=== PATIENT | female | born 1990 | race Caucasian/White ===

== ENCOUNTER 2019-12-06 08:07 | Day surgery (SDC) | payer BC ==
[~2019-12-06] VITALS: Ht 165.1 cm; Wt 69.2 kg
[2019-12-06] MEDS ORDERED: NAPR220C2 PO (09:09)
[2019-12-06] MEDS ORDERED: MULT-658 PO (09:09)
[2019-12-06 09:15] VITALS: BP 111/78
[2019-12-06 09:19] LABS: HCG UR SG 1.022 (1.003-1.030)
[2019-12-06] MEDS ORDERED: LACTATED RINGERS 1,000 ML IV SCH (09:20)
[2019-12-06] MEDS ORDERED: CHLORHEXIDINE 15 ML UDC MM ONE (09:30)
[2019-12-06] MEDS ORDERED: EPINEPHRINE TOPICAL SOLN 1 MG/ML, 30ML ONE (09:58)
[2019-12-06] MEDS ORDERED: ROPIvacaine/PF 0.5%, 30 ML ONE (09:58)
[2019-12-06] MEDS ORDERED: SCOPOLAMINE 1MG PATCH TD SCH (11:00)
[2019-12-06] MEDS ORDERED: ACETAMINOPHEN 500 MG TABLET PO ONE (11:00)
[2019-12-06] MEDS ORDERED: MIDAZOLAM 1 MG/ML, 2ML ONE (11:14)
[2019-12-06] MEDS ORDERED: PROPOFOL 10 MG/ML, 20ML ONE (11:14)
[2019-12-06] MEDS ORDERED: ONDANSETRON 2MG/ML, 2ML ONE ×3 (11:14→17:03)
[2019-12-06] MEDS ORDERED: DEXAMETHASONE 4 MG/ML, 1ML ONE (11:14)
[2019-12-06] MEDS ORDERED: SUCCINYLCHOLINE 20 MG/ML, 10ML ONE (11:14)
[2019-12-06] MEDS ORDERED: ROCURONIUM 10 MG/ML,10ML ONE (11:14)
[2019-12-06] MEDS ORDERED: CEFAZOLIN 1,000 MG ONE (11:14)
[2019-12-06] MEDS ORDERED: ALBUTEROL SULFATE 2.5 MG/3 ML NPPB PRN (12:00)
[2019-12-06] MEDS ORDERED: MEPERIDINE/PF 25MG/0.5ML IVPush PRN (12:00)
[2019-12-06] MEDS ORDERED: METOCLOPRAMIDE 5 MG/ML, 2ML IV PRN (12:00)
[2019-12-06] MEDS ORDERED: ONDANSETRON 2MG/ML, 2ML IVPush PRN (12:00)
[2019-12-06] MEDS ORDERED: hydrALAzine 20 MG/ML, 1ML IV PRN (12:00)
[2019-12-06] MEDS ORDERED: DIAZEPAM 5 MG/ML, 2ML IV PRN ×2 (12:00)
[2019-12-06] MEDS ORDERED: OXYcodone 5 MG/5 ML ORAL.SOL UDC PO PRN (12:00)
[2019-12-06] MEDS ORDERED: PROMETHAZINE 25 MG/ML, 1ML IV PRN (12:00)
[2019-12-06] MEDS ORDERED: KETOROLAC 30 MG/1 ML IV PRN (12:00)
[2019-12-06] MEDS ORDERED: LABETALOL 5MG/ML, 20ML IV PRN (12:00)
[2019-12-06] MEDS ORDERED: HYDROmorphone 1 MG/ML, 1ML INJ ONE (13:07)
[2019-12-06] MEDS ORDERED: FENTANYL PF 100 MCG/2ML ONE (13:07)
[2019-12-06] MEDS ORDERED: PROMETHAZINE 25 MG/ML, 1ML ONE (13:07)
[2019-12-06] MEDS: FENTANYL PF 100 MCG/2ML IV PRN ×2 (13:09→13:17)
[2019-12-06] MEDS: HYDROmorphone 1 MG/ML, 1ML INJ IV PRN ×2 (13:22→13:27)
[2019-12-06] MEDS: PROMETHAZINE 25 MG/ML, 1ML IM PRN ×2 (14:30→17:00)
== END 2019-12-06 18:10 | disposition home or self-care (01) ==
LOC: OUT 08:07 → EDSTATUS 12:15 → OUT 18:10
PROVIDERS: ATTEND Orthopaedic Surgery
DX: S73.191A Other sprain of right hip, initial encounter (principal); Z20.828 Contact with and (suspected) exposure to other viral communicable diseases; M24.151 Other articular cartilage disorders, right hip; M70.61 Trochanteric bursitis, right hip; M25.851 Other specified joint disorders, right hip; Z82.61 Family history of arthritis; Z82.49 Family history of ischemic heart disease and other diseases of the circulatory system; X58.XXXA Exposure to other specified factors, initial encounter; Y93.89 Activity, other specified; Y92.89 Other specified places as the place of occurrence of the external cause; Y99.8 Other external cause status
CPT/HCPCS: 29914; 36415; 73501; 81025; 87635; J0330; J0690; J1100; J1170; J1885; J2250; J2405; J2550; J2704; J2795; J3010; J7120; 76000